=== PATIENT | male | born 1945 | race Caucasian/White ===

== ENCOUNTER → 2017-12-10 | Outpatient (CLI) | payer MEDICARE ==
[~2017-12-10] MED LIST: ALLO100T70 PO; AMLO-96 PO; ASPI-1471 PO; ATOR40TA24 PO; LOSA100T63 PO; OMEP-218 PO; PNEU0.5D3 IM; RANI-366 PO; STOPPED ASA; VAL80 PO; VIT-7 PO
[2017-12-10 09:39] LABS: PLATELET COUNT, AUTOMATED 109 K/uL (150-450)
== END ==
LOC: LAB 09:05
PROVIDERS: ATTEND Internal Medicine
DX: I10 Essential (primary) hypertension (principal); R94.5 Abnormal results of liver function studies; K21.9 Gastro-esophageal reflux disease without esophagitis; E78.5 Hyperlipidemia, unspecified
CPT/HCPCS: 36415; 81001; 84443; 84550; 85025; G0103; 82040; 82247; 82310; 82374; 82435; 82465; 82565; 82947; 83718; 84075; 84132; 84153; 84155; 84295; 84450; 84460; 84478; 84520

== ENCOUNTER → 2018-01-14 | Outpatient (CLI) | payer MEDICARE ==
--- NOTE | 2018-01-14 12:56 | RADIOLOGY IMAGING REPORT ---
FACILITY: [facility] - [place] PATIENT NAME: Rocky Westbrook : 1945 MR: [id number] V: [id number] EXAM DATE: ORDERING PHYSICIAN: EDMOND LARA TECHNOLOGIST: Location: [facility] - [place] Patient: Rocky Westbrook : 1945 Visit/Account:[id number] Date of Sevice: 01/14/2018 Technique: ABDOMEN COMPLETE HISTORY: Elevated liver enzymes Comparison: None Technique: Multiple grayscale, color and Doppler sonographic images were obtained for a complete ultr asound of the abdomen. Findings: The liver is normal in size measuring 16.0 cm. Overall, there is increased echotexture throughout th e hepatic parenchyma. There is normal hepatopedal portal venous flow. No adjacent ascites. The spleen is normal in size, contour, and echotexture and measures 12 cm in length. Gallbladder wall thickness is 2 mm with no evidence of shadowing stone or sludge within the gallbladd er lumen. Negative sonographic Avina's sign reported by the technologist. Common duct measures 2 mm in maximum diameter with no evidence of shadowing stone. Imaged portions of the pancreas are unremarkable. Abdominal aorta and IVC are patent and unremarkable. The kidneys are normal in size, contour, and echotexture with the right kidney measuring 10.6 cm x 6 .0 cm x 5.5 cm and the left kidney measuring 12.3 cm x 5.8 cm x 5.6 cm. IMPRESSION: 1. Increased echotexture throughout the hepatic parenchyma typically seen with hepatic steatosis. Report Dictated By: Kirk Ledezma DO at 01/14/2018 12:39 PM Report E-Signed By: Kirk Ledezma DO at 01/14/2018 12:53 PM WSN:[id number]
== END ==
LOC: US 01:55
PROVIDERS: ATTEND Internal Medicine
DX: K76.0 Fatty (change of) liver, not elsewhere classified (principal)
CPT/HCPCS: 36415; 76700; 82310; 82374; 82435; 82565; 82947; 84132; 84295; 84520

== ENCOUNTER → 2019-01-05 | Outpatient (CLI) | payer MEDICARE ==
[~2019-01-05] MED LIST changes: +AMLO-125 PO; -AMLO-96 PO; -RANI-366 PO; +RANI-54 PO
--- NOTE | 2019-01-05 16:39 | RADIOLOGY IMAGING REPORT ---
[facility] PATIENT NAME: Rocky Westbrook : 1945 MR: [id number] V: [id number] EXAM DATE: ORDERING PHYSICIAN: GRZEGORZ NEWMAN TECHNOLOGIST: Location: [facility] - [place] Patient: Rocky Westbrook : 1945 Visit/Account:[id number] Date of Sevice: 01/05/2019 MRI left knee Indication: Pain in the left knee. Comparison: None available. Technique: Multiplanar, multisequence MRI examination is performed of the left knee without contrast. Findings: Medial compartment: Undersurface tearing of the posterior horn of the medial meniscus. Mild chondral irregularity and partial thickness chondral loss of the weightbearing medial femoral co ndyle cartilage. Lateral compartment: Markedly truncated appearance of the posterior horn and body lateral meniscus with a prior partial me niscectomy versus extensive macerated complex tearing throughout the lateral meniscus with irregular undersurface signal abnormality within the posterior horn concerning for recurrent undersurface tear as well. Full-thickness chondral loss mid weightbearing lateral femoral condyle noted plateau cartilage with a few foci of underlying mild subchondral edema. Patellofemoral compartment: Mild chondral irregularity seen within the median ridge patella cartilage. Bones and marrow: No acute or aggressive osseous abnormality. Ligaments and tendons: Increased signal within the central to proximal PCL fibers related to mild ligament sprain/partial te aring. Diffuse increased signal throughout the ACL fibers with the majority appearing intact with partial te aring and/or mucoid degeneration not excluded. There are no acute bone contusions identified. The extensor mechanism is intact. Increased edema adjacent to the MCL as well as mild increased signal proximal MCL fibers may relate t o sprain. The iliotibial band, biceps femoris tendon, and the fibular collateral ligament is intact The popliteus tendon is also intact. Soft tissues: There is a moderate sized suprapatellar joint effusion. There is moderate prepatellar edema. Moderate sized Bakers cyst. Moderate-sized complex cystic structure extending from the posterior chilo in of the joint may relate to a ganglion cyst seen best on images 2324 the sagittal series as well as on images 11 and 12 the axial series. IMPRESSION: 1. 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 2. Severe chondral loss lateral compartment cartilage. 3. MCL sprain. 4. Tineo's cyst. 5. Mild ligamentous sprain/mild partial tearing PCL and ACL mucoid degeneration as well as possible p artial tearing throughout the ACL fibers without acute bone contusions. Report Dictated By: Otilio Reyes MD at 01/05/2019 4:27 PM Report E-Signed By: Otilio Reyes MD at 01/05/2019 4:32 PM WSN:[id number]
== END ==
LOC: MRI 00:13
PROVIDERS: ATTEND Family Medicine
DX: S83.412A Sprain of medial collateral ligament of left knee, initial encounter (principal); M71.22 Synovial cyst of popliteal space [Baker], left knee